=== PATIENT | male | born 1955 | race Caucasian/White ===

== ENCOUNTER 2019-12-24 17:38 | Emergency (ER) | payer OTHER ==
[~2019-12-24] VITALS: Ht 172.7 cm; Wt 84.0 kg
[2019-12-24] MEDS ORDERED: IV NORMAL SALINE 1000ML BAG 1,000 ML IV ONE (19:30)
[2019-12-24 19:36] LABS: BASO % 0 % (0-3); EOS % 0 % (0-3); HEMATOCRIT 47.8 % (39.0-53.0); HEMOGLOBIN 15.8 g/dL (13.0-17.5); LYMPH # 1.2 x10^3/uL (1.0-4.8); LYMPH % 12 % (24-48); MEAN CORPUSCULAR HEMOGLOBIN 28 pg (25-35); MEAN CORPUSCULAR HGB CONC 33 g/dL (31-37); MEAN CORPUSCULAR VOLUME 86 fL (79-100); MONO # 0.8 x10^3/uL (0.0-1.1); MONO % 7 % (0-9); NEUT # 8.3 x10^3/uL (1.8-7.7); NEUT % 81 % (31-73); PLATELET COUNT 186 x10^3/uL (140-400); RED BLOOD COUNT 5.58 x10^6/uL (4.30-5.70); RED CELL DISTRIBUTION WIDTH 14.5 % (11.5-14.5); WHITE BLOOD COUNT 10.4 x10^3/uL (4.0-11.0)
[2019-12-24 19:45] LABS: CALCIUM 8.5 mg/dL (8.5-10.1); CREATININE 1.1 mg/dL (0.7-1.3); GFR 67.8
[2019-12-24 19:50] LABS: ALBUMIN 4.3 g/dL (3.4-5.0); ALBUMIN/GLOBULIN RATIO 1.5 (1.0-1.7); TOTAL BILIRUBIN 0.9 mg/dL (0.2-1.0); TOTAL PROTEIN 7.2 g/dL (6.4-8.2)
[2019-12-24] MEDS ORDERED: CONTRAST GIVEN. MC PRN (20:00)
[2019-12-24] MEDS ORDERED: IOHEXOL 300 MG/ML 100ML VIAL. IV ONE (20:00)
--- NOTE | 2019-12-24 20:29 | RAD ---
Examination: CT ABD PELV W/ IV CONTRST ONLY History: Reason: LLQ PAIN, OMNI 300, 75 ML IV / Spl. Instructions: / History: Comparison/Correlation: None Findings: Axial images of the abdomen pelvis were obtained following IV contrast. Sagittal and coronal reformatted images were provided. Minimal linear atelectasis in the lung bases noted. Liver, spleen, pancreas, and adrenal glands are normal. Kidneys are unremarkable. There is a 0.7 cm diameter calculus present at the gallbladder neck. No inflammatory findings are identified about the cecum. Appendix is unremarkable. There is high density of the fat about the very proximal sigmoid colon. Diverticulosis at the site is seen. No loculated collection. No extra luminal gas. Diverticulosis also seen to a mild extent involving the sigmoid colon diffusely. Small umbilical hernia containing omental fat. Urinary bladder is unremarkable. No ascites or pelvic free fluid. Severe disc space narrowing from L1 to L5 is present. Bony encroachment on neural foramina noted at L4-5 bilaterally and at the left L3-4 neural foramen. Spurring along the posterior aspect L2 vertebral body with spinal canal stenosis of moderate concentric disc bulge at this level also seen. Extent at L2-3 is present. Impression: Inflammatory findings at the proximal sigmoid colon compatible with acute diverticulitis. No loculated collection or findings of perforation. Follow-up to resolution is recommended to exclude underlying neoplastic process. Calculus at the gallbladder neck. No biliary dilatation or findings of acute cholecystitis. Advanced degenerative changes of the lumbar spine with spinal canal stenosis at L2-3. PQRS Compliance Statement: One or more of the following individualized dose reduction techniques were utilized for this examination: 1. Automated exposure control 2. Adjustment of the mA and/or kV according to patient size 3. Use of iterative reconstruction technique Electronically signed by: Francois Chang MD (12/24/2019 8:26 PM) [id number]
--- NOTE | 2019-12-24 20:38 | PHYS DOC ---
Past Medical History Past Medical History: No Pertinent History Additional Past Surgical Histo: knee, eye Smoking Status: Former Smoker Alcohol Use: None General Adult EDM: Chief Complaint: ABDOMINAL PAIN HPI: HPI: Patient is a 64 year old male presenting to the ED with a chief complaint of left lower quadrant tenderness for the last 3 days. Patient does complain of subjective fevers. Patient denies nausea, vomiting, diarrhea, constipation. Patient states that the pain started in his left mid abdomen and radiated down to his left lower abdomen. Patient also states that when he presses on his mid abdomen there is pain in the left lower quadrant. Patient denies history of diverticulitis. Patient denies blood in his stool but states that today in his stool he had a small amount of mucus. Review of Systems: Review of Systems: Constitutional: Denies fever or chills. [] Eyes: Denies change in visual acuity. [] HENT: Denies nasal congestion or sore throat. [] Respiratory: Denies cough or shortness of breath. [] Cardiovascular: Denies chest pain or edema. [] GI: Complains of left lower quadrant abdominal tenderness [] : Denies dysuria. [] Musculoskeletal: Denies back pain or joint pain. [] Neurologic: Denies headache, focal weakness or sensory changes. [] Heart Score: Risk Factors: Risk Factors: DM, Current or recent (<one month) smoker, HTN, HLP, family history of CAD, obesity. Risk Scores: Score 0 - 3: 2.5% MACE over next 6 weeks - Discharge Home Score 4 - 6: 20.3% MACE over next 6 weeks - Admit for Clinical Observation Score 7 - 10: 72.7% MACE over next 6 weeks - Early Invasive Strategies Current Medications: Current Medications Medications (Trade) Dose Ordered Sig/Geovany Start Time Stop Time Status Last Admin Dose Admin Info (CONTRAST GIVEN -- Rx MONITORING) 1 each PRN DAILY PRN 12/24/19 20:00 12/26/19 19:59 Iohexol (Omnipaque 300 Mg/ml) 75 ml 1X ONCE 12/24/19 20:00 12/24/19 20:01 DC Sodium Chloride 1,000 ml @ 1,000 mls/hr 1X ONCE 12/24/19 19:30 12/24/19 20:29 DC Allergies: Allergies: Allergies Coded Allergies Type Severity Reaction Last Updated Verified No Known Drug Allergies 12/24/19 No Physical Exam: PE: Constitutional: Well developed, well nourished, no acute distress, non-toxic appearance. [] HENT: Normocephalic, atraumatic Eyes: EOMI Neck: Normal range of motion, Supple Cardiovascular:Heart rate regular rhythm Lungs & Thorax: Bilateral breath sounds clear to auscultation [] Abdomen: Left lower quadrant abdominal tenderness Extremities: No tenderness, ROM intact Neurologic: Alert and oriented X 3 Current Patient Data: Labs: Laboratory Tests Test 12/24/19 19:25 White Blood Count 10.4 x10^3/uL (4.0-11.0) Red Blood Count 5.58 x10^6/uL (4.30-5.70) Hemoglobin 15.8 g/dL (13.0-17.5) Hematocrit 47.8 % (39.0-53.0) Mean Corpuscular Volume 86 fL (79-100) Mean Corpuscular Hemoglobin 28 pg (25-35) Mean Corpuscular Hemoglobin Concent 33 g/dL (31-37) Red Cell Distribution Width 14.5 % (11.5-14.5) Platelet Count 186 x10^3/uL (140-400) Neutrophils (%) (Auto) 81 % (31-73) H Lymphocytes (%) (Auto) 12 % (24-48) L Monocytes (%) (Auto) 7 % (0-9) Eosinophils (%) (Auto) 0 % (0-3) Basophils (%) (Auto) 0 % (0-3) Neutrophils # (Auto) 8.3 x10^3/uL (1.8-7.7) H Lymphocytes # (Auto) 1.2 x10^3/uL (1.0-4.8) Monocytes # (Auto) 0.8 x10^3/uL (0.0-1.1) Eosinophils # (Auto) 0.0 x10^3/uL (0.0-0.7) Basophils # (Auto) 0.0 x10^3/uL (0.0-0.2) Sodium Level 135 mmol/L (136-145) L Potassium Level 4.0 mmol/L (3.5-5.1) Chloride Level 98 mmol/L (98-107) Carbon Dioxide Level 25 mmol/L (21-32) Anion Gap 12 (6-14) Blood Urea Nitrogen 21 mg/dL (8-26) Creatinine 1.1 mg/dL (0.7-1.3) Estimated GFR (Cockcroft-Gault) 67.8 BUN/Creatinine Ratio 19 (6-20) Glucose Level 98 mg/dL (70-99) Lactic Acid Level 1.3 mmol/L (0.4-2.0) Calcium Level 8.5 mg/dL (8.5-10.1) Total Bilirubin 0.9 mg/dL (0.2-1.0) Aspartate Amino Transferase (AST) 20 U/L (15-37) Alanine Aminotransferase (ALT) 29 U/L (16-63) Alkaline Phosphatase 68 U/L (46-116) Total Protein 7.2 g/dL (6.4-8.2) Albumin 4.3 g/dL (3.4-5.0) Albumin/Globulin Ratio 1.5 (1.0-1.7) Lipase 160 U/L (73-393) Laboratory Tests 12/24/19 19:25 Laboratory Tests 12/24/19 19:25 Vital Signs: Vital Signs Date Time Temp Pulse Resp B/P (MAP) Pulse Ox O2 Delivery O2 Flow Rate FiO2 12/24/19 18:40 98.7 101 16 200/99 (132) 96 Room Air 98.7 EKG: EKG: [] Radiology/Procedures: Radiology/Procedures: [] Impression: CT ABD/PELVIS Impression: Inflammatory findings at the proximal sigmoid colon compatible with acute diverticulitis. No loculated collection or findings of perforation. Follow-up to resolution is recommended to exclude underlying neoplastic process. Calculus at the gallbladder neck. No biliary dilatation or findings of acute cholecystitis. Advanced degenerative changes of the lumbar spine with spinal canal stenosis at L2-3. US ABDOMEN Course & Med Decision Making: Course & Med Decision Making Pertinent Labs and Imaging studies reviewed. (See chart for details) Ordered labs, IV fluids, CT abdomen pelvis with IV contrast. Nurse informs me that patient refused IV fluids. CT abdomen pelvis shows diverticulitis with no perforation or abscess. There is also gallstone in the neck of the gallbladder. I have ordered ultrasound of the right upper quadrant. IV antibiotics given in the ED. IV Cipro and IV Flagyl given. US shows gallstones in the gallbladder which is not impacted. Patient has no right upper quadrant tenderness. Discussed case with Dr. Quezada who recommends that patient be seen as an out patient. Discussed results and plan of care with patient. Patient is instructed to follow up with PCP in one to 2 days. Appropriate discharge instructions given to patient to return to the ED or to seek immediate medical evaluation. Patient is instructed to return to the ED if symptoms worsen or if any concerns. Dragon Disclaimer: Dragon Disclaimer: This electronic medical record was generated, in whole or in part, using a voice recognition dictation system. Departure Departure Impression: Primary Impression: Diverticulitis Additional Impression: Gallstone Disposition: HOME, SELF-CARE Condition: STABLE Referrals: NO PCP (PCP) Patient Instructions: Cholelithiasis, Diverticulitis Additional Instructions: Discussed results and plan of care with patient. Patient is instructed to follow up with PCP in one to 2 days. Appropriate discharge instructions given to patient to return to the ED or to seek immediate medical evaluation. Patient is instructed to return to the ED if symptoms worsen or if any concerns. Scripts Metronidazole (FLAGYL) 500 Mg Tablet 500 MG PO TID for 10 Days, #30 TAB Prov: HUYEN LAYTON DO 12/24/19 Ciprofloxacin Hcl (CIPRO) 500 Mg Tablet 1 TAB PO BID for 10 Days, #20 TAB 0 Refills Prov: HUYEN LAYTON DO 12/24/19 Justicifation of Admission Dx: Justifications for Admission: Justification of Admission Dx: No HUYEN LAYTON DO Dec 24, 2019 20:38
--- NOTE | 2019-12-24 22:17 | RAD ---
Exam: Ultrasound abdomen limited Indication: Gallbladder stone Technique: Real-time grayscale and color Doppler images of the right upper quadrant were obtained by the department account installer. Comparisons: CT same day FINDINGS: Liver contour is normal. Hepatopedal flow in the portal vein. Also noted at the neck of the gallbladder. No pericholecystic fluid or wall thickening. Right kidney measures 11.5 cm in length. No hydronephrosis. Visualized portions of aorta and IVC are unremarkable. IMPRESSION: 1. Cholelithiasis without evidence of acute cholecystitis. 2. Normal sonographic appearance of the liver. 3. No right-sided hydronephrosis. Electronically signed by: Natalie Bah MD (12/24/2019 10:15 PM) [id number]
[2019-12-24 22:20] LABS: BILIRUBIN,URINE NEGATIVE (NEG); CLARITY,URINE CLEAR; COLOR,URINE YELLOW; NITRITE,URINE NEGATIVE (NEG); PH,URINE 5.5 (<5.0-8.0); PROTEIN,URINE NEGATIVE (NEG-TRACE); UROBILINOGEN,URINE 0.2 mg/dL (0.2 mg/dL)
[2019-12-24 22:27] LABS: BACTERIA,URINE 0 /HPF (0-FEW); SQUAMOUS EPITHELIAL CELL,UR OCC /LPF; WBC,URINE OCC /HPF (0-4)
[2019-12-24] MEDS ORDERED: CIPR500T94 PO (22:59)
[2019-12-24] MEDS ORDERED: METR500T PO (22:59)
[2019-12-24 23:01] VITALS: BP 122/63
== END 2019-12-24 23:10 | disposition home or self-care (01) ==
LOC: ER 17:38
DX: K57.92 Diverticulitis of intestine, part unspecified, without perforation or abscess without bleeding (principal); K80.20 Calculus of gallbladder without cholecystitis without obstruction; Z87.891 Personal history of nicotine dependence
CPT/HCPCS: 36415; 74177; 76705; 80053; 81001; 83605; 83690; 85025; 96365; 99285; J3490; Q9967